=== PATIENT | male | born 1945 | race Caucasian/White ===

== ENCOUNTER 2017-01-23 16:10 | Emergency (ER) | payer MEDICARE, OTHER ==
[2017-01-23 16:27] LABS: BASOPHILS 0.4 % (0-2); EOSINOPHILS 1.7 % (0-7); HEMATOCRIT 44.6 % (42.0-54.0); HEMOGLOBIN 15.5 g/dL (13.5-17.5); IMMATURE GRANULOCYTES 0.4 % (0-5); LYMPHOCYTES 19.9 % (15-50); MCH 31.7 pg (26.0-34.0); MCHC 34.8 g/dL (31.0-37.0); MCV 91.2 fL (80.0-100.0); MEAN PLATELET VOLUME 11.6 fL (7.4-10.4); MONOCYTES 7.8 % (2-11); NEUTROPHILS 69.8 % (40-80); PLATELET COUNT 256 10x3/uL (130-400); RBC 4.89 10x6/uL (4.20-6.10); RDW 13.8 % (11.5-14.5); WBC 11.7 10x3/uL (4.8-10.8)
[2017-01-23 16:47] LABS: ALBUMIN 3.9 g/dL (3.4-5.0); ALKALINE PHOSPHATASE 86 U/L (46-116); ALT (SGPT) 38 U/L (10-68); BILIRUBIN - TOTAL 0.52 mg/dL (0.2-1.3); CALC OSMOLALITY 287 mosm/kg (275-300); CALCIUM 9.3 mg/dL (8.5-10.1); CARBON DIOXIDE 28.3 mmol/L (21.0-32.0); CHLORIDE - SERUM 102 mmol/L (98-107); CREATININE - SERUM 1.4 mg/dL (0.6-1.3); GLUCOSE 158 mg/dL (74-106); POTASSIUM - SERUM 3.1 mmol/L (3.5-5.1); PROTEIN - SERUM 8.4 g/dL (6.4-8.2); SODIUM 142 mmol/L (136-145); UREA NITROGEN 19 mg/dL (7-18); eGFR NON AFRICAN AMERICAN 53 mL/min (90-120)
[2017-01-23 16:53] LABS: TROPONIN-I < 0.017 ng/mL (0.000-0.060)
[2017-01-23 19:09] LABS: ERYTHROCYTE SEDIMENTATION RATE 30 mm/hr (0-20)
[2017-01-24] MEDS ORDERED: GLIMEPIRIDE2 MG PO (17:09)
[2017-01-24] MEDS ORDERED: GLUCOPHAGE1000 MG PO (17:09)
[2017-01-24] MEDS ORDERED: BUMEX2 MG PO (17:10)
[2017-01-24] MEDS ORDERED: ALTACE10 MG PO (17:10)
[2017-01-24] MEDS ORDERED: NORVASC5 MG PO (17:11)
[2017-01-24] MEDS ORDERED: ASPIRIN325 MG PO (17:12)
[2017-01-25 12:21] VITALS: BMI 38.4
== END 2017-01-23 18:17 | disposition home or self-care (01) ==
LOC: D.ER 16:10
PROVIDERS: Emergency Medicine
DX: E11.319 Type 2 diabetes mellitus with unspecified diabetic retinopathy without macular edema (principal)

== ENCOUNTER 2017-01-24 13:19 | Inpatient (IN) | payer MEDICARE, OTHER ==
[~2017-01-24] VITALS: Ht 170.2 cm; Wt 111.1 kg
--- NOTE | ~2017-01-24 | EC ---
PATIENT:AGUS SCHMITT DATE OF SERVICE: 01/24/17 SEX: M MEDICAL RECORD: [id number] DATE OF : 41 LOCATION:[facility] AGE OF PATIENT: 71 ADMISSION DATE: 01/24/17 REFERRING PHYSICIAN: INTERPRETING PHYSICIAN: FALLON COURTNEY M.D. ECHOCARDIOGRAM REPORT ECHO CHARGES 4 ECHO COMPLETE CLINICAL DIAGNOSIS: CVA/ASSESS FOR CLOTS HX OF TIA/HTN ECHOCARDIOGRAPHIC MEASUREMENTS (adult normal given) AC root (d.<3.7cm) 3.9 LV Septum d (<1.2 cm> 1.5 Valve Excursion 20 LV Septum (systole) 1.9 Left Atria (s.<4.0cm> 3.9 LVPW d(<1.2cm) 1.6 RV (d.<2.3cm) 3.9 LVPW (sytole) 2.0 LV diastole(<5.6CM) 4.9 MV E-F(>70mm/sec) LV systole 3.3 LVOT Diameter 1.7 MV exc.(>10mm) 1.9 Est.ejection fraction (50-75%) Pericardial Effusion N DOPPLER: LVIT A 99.0 E 68.0 LA RVSP 26 LVOT 120 AOP1/2T 670 Asc. Ao 150 RVOT 130 RA PA 183 AV Gradient Peak 9.00 AV Mean 4.41 AV Area 1.7 MV Gradient Peak 7.26 MV Mean 2.71 MV Area COMMENTS: Spanish Tutor: Izabel COTTO Male Impersonator:Izabel Courtney TAPE# PACS DATE OF SERVICE: 01/25/2017 REFERRING PHYSICIAN: Dr. David Fernandez. INDICATION: CVA. DESCRIPTION: Left ventricle demonstrates left ventricular hypertrophy. No wall motion abnormalities are seen. Estimated ejection fraction 55%. I do not see any evidence of mass or thrombus in the left ventricle apex. Mitral valve is structurally normal. There is no regurgitation or prolapse seen. Left atrium ECHOCARDIOGRAM REPORT [id number] AGUS SCHMITT is normal in size. The aortic valve is not well visualized. In some views it appears to be bicuspid. There is mild insufficiency seen, but no evidence of stenosis. Right ventricle is mildly dilated. Tricuspid valve appears normal. There is mild regurgitation noted. Right atrium is normal in size. There is no pericardial effusion seen. IMPRESSION: 1. Left ventricular hypertrophy with preserved ejection fraction of 55%. There is no evidence of any mass or thrombus in the left ventricle apex. 2. Mild tricuspid regurgitation. 3. Mild aortic insufficiency. The aortic valve may be bicuspid, but there is no evidence of stenosis. 4. No evidence of any mass or lesion on the semilunar valves. 5. No evidence of atrial septal defect, ventricular septal defect or patent foramen ovale. TRANSINT:[id number] Voice Confirmation ID: [id number] DOCUMENT ID: [id number] FALLON COURTNEY M.D. CC: [id number] DICTATION DATE: 01/26/17 0853 FEDERAL APPELLATE CLERK: 01/26/17 0908 ADM IN [facility] [address] [id number]
--- NOTE | 2017-01-24 15:23 | NUR ---
PT RECIEVED TO ROOM 2206 VIA WHEELCHAIR AWAKE AND ALERT ORINETED X 3 HAS COMPLAINT OF VISION DISTURBANCE. PIV SITED 20 GA TO RIGHT INNER FORARM X 1 STICK TOLERATED WELL.
[2017-01-24 15:28] LABS: BASOPHILS 0.3 % (0-2); EOSINOPHILS 0.6 % (0-7); HEMATOCRIT 43.1 % (42.0-54.0); HEMOGLOBIN 14.8 g/dL (13.5-17.5); IMMATURE GRANULOCYTES 0.3 % (0-5); LYMPHOCYTES 22.2 % (15-50); MCH 31.2 pg (26.0-34.0); MCHC 34.3 g/dL (31.0-37.0); MCV 90.9 fL (80.0-100.0); MEAN PLATELET VOLUME 11.3 fL (7.4-10.4); MONOCYTES 8.8 % (2-11); NEUTROPHILS 67.8 % (40-80); PLATELET COUNT 249 10x3/uL (130-400); RBC 4.74 10x6/uL (4.20-6.10); RDW 13.8 % (11.5-14.5); WBC 11.5 10x3/uL (4.8-10.8)
[2017-01-24 15:52] LABS: ALBUMIN 3.8 g/dL (3.4-5.0); ANION GAP 13.9 mmol/L (8-16); BILIRUBIN - TOTAL 0.81 mg/dL (0.2-1.3); CALCIUM 9.2 mg/dL (8.5-10.1); CREATININE - SERUM 1.2 mg/dL (0.6-1.3); PROTEIN - SERUM 8.1 g/dL (6.4-8.2); T4 THYROXIN - FREE 1.12 ng/dL (0.76-1.46); THYROID STIMULATING HORMONE 1.63 uIU/mL (0.36-3.74)
[2017-01-24 15:54] LABS: POTASSIUM - SERUM 2.9 mmol/L (3.5-5.1)
[2017-01-24 16:45] VITALS: BP 183/77
[2017-01-24] MEDS ORDERED: GLUCOPHAGE1000 MG PO (17:09)
[2017-01-24] MEDS ORDERED: GLIMEPIRIDE2 MG PO (17:09)
[2017-01-24] MEDS ORDERED: ALTACE10 MG PO (17:10)
[2017-01-24] MEDS ORDERED: BUMEX2 MG PO (17:10)
[2017-01-24] MEDS ORDERED: NORVASC5 MG PO (17:11)
[2017-01-24] MEDS ORDERED: ASPIRIN325 MG PO (17:12)
[2017-01-24 18:01] VITALS: BP 183/77; BMI 38.4
--- NOTE | 2017-01-24 18:11 | NUR ---
PT AOX4 RESP EVEN AND NONLABORED PT DENIES PAIN OR NEEDS AT THIS TIME IV TO RIGHT FOREARM PATENT AND INTACT PT HERE FOR POSSIBLE CVA FOR THIS VISIT. SRX2 BED IN LOWEST SETTING CALL LIGHT WITHIN REACH WILL CONTINUE TO MONITOR
--- NOTE | 2017-01-24 18:59 | NUR ---
PT STATES THAT HE HAS ALREADY TAKEN HIS ALTACE TODAY AND ONLY TAKES IT ONCE PER DAY SO DOESNT WANT TO REPEAT THE DOSE. ALSO DIDNT WANT TO TAKE METFORMIN IT "MESSES MY STOMACH UP IF I TAKE 2 PILLS OF THAT AND I DONT HAVE AN APPITITE AND DONT WANT IT"
[2017-01-24 20:00] VITALS: BP 159/86
[2017-01-25] VITALS: BP 162/88
--- NOTE | 2017-01-25 03:14 | NUR ---
ASSESSED AT THE BEGINNING OF THE SHIFT. PT IS ALERT BUT AT TIMES SEEMS A LITTLE CONFUSED. HIS VISION IS SO DISTORTED THAT HE IS NOT ABLE TO FIND THE BATHROOM TOLIET EVEN WITH ASSIST HE IS CONFUSED. WE HAVE GIVEN HIM A URINAL BUT HE IS NOT USING IT. THERE IS A BED ALARM ON HIS BED AND WE ARE KEEPING THE DOOR OPEN SO WE CAN WATCH. HE HAS TELEMETRY IN PLACE AND A SALINE LOCK. AT BEDTIME WE GAVE HIM THE AMBIEN THAT HE REQUESTED AND WAS ORDERED. HE HAS SLEPT OFF AND ON WELL WITH NO DISTRESS NOTED. THE BED IS LOW, RAILS UP X'S 2 WITH THE CALL LIGHT AT HAND.
[2017-01-25 04:00] VITALS: BP 155/80
[2017-01-25 05:45] LABS: ANION GAP 15.2 mmol/L (8-16); CARBON DIOXIDE 25.3 mmol/L (21.0-32.0); CHOL - HDL RATIO 5.4 ratio (2.3-4.9); CREATININE - SERUM 1.2 mg/dL (0.6-1.3); LDL-HDL RATIO 2.9 ratio (1.5-3.5)
[2017-01-25 06:00] LABS: POTASSIUM - SERUM 3.5 mmol/L (3.5-5.1)
--- NOTE | 2017-01-25 07:00 | NUR ---
PT REC'D FROM LAVINIA HEALY. RESTING IN BED WITH AT BEDSIDE. KARRI HEALY, AT BEDSIDE WELL. BED LOW, CALL LIGHT IN REACH, DENIES NEEDS. CPOC.
[2017-01-25 07:49] VITALS: BP 184/81
[2017-01-25 08:58] LABS: BASOPHILS 0.2 % (0-2); EOSINOPHILS 1.2 % (0-7); HEMATOCRIT 44.7 % (42.0-54.0); IMMATURE GRANULOCYTES 0.3 % (0-5); LYMPHOCYTES 27.1 % (15-50); MCHC 33.6 g/dL (31.0-37.0); MCV 92.4 fL (80.0-100.0); MEAN PLATELET VOLUME 11.9 fL (7.4-10.4); MONOCYTES 8.6 % (2-11); NEUTROPHILS 62.6 % (40-80); PLATELET COUNT 280 10x3/uL (130-400); RBC 4.84 10x6/uL (4.20-6.10); WBC 10.5 10x3/uL (4.8-10.8)
--- NOTE | 2017-01-25 09:00 | NUR ---
ASSESSED PT VISION/ PT ABLE TO SEE CLOCK AND RELAY TIME ON WALL ACROSS FROM BED BUT HAS DIFFICULTY PIN POINTING OBJECTS UP CLOSE. PT ASKED IF HE COULD WALK THIS MORNING, ADVISED PT TO WALK WITH ASSISTANCE AND SPOUSE WAS WITH PT THIS MORNING/ PT GAIT UNSTEADY - [id number]
[2017-01-25 09:10] LABS: ALBUMIN 3.8 g/dL (3.4-5.0); ANION GAP 16.7 mmol/L (8-16); BILIRUBIN - TOTAL 0.88 mg/dL (0.2-1.3); CALCIUM 9.1 mg/dL (8.5-10.1); CARBON DIOXIDE 25.1 mmol/L (21.0-32.0); CREATININE - SERUM 1.1 mg/dL (0.6-1.3); POTASSIUM - SERUM 3.8 mmol/L (3.5-5.1); PROTEIN - SERUM 7.6 g/dL (6.4-8.2)
--- NOTE | 2017-01-25 10:27 | HP ---
PATIENT: AGUS SCHMITT MEDICAL RECORD: [id number] ACCOUNT: [id number] LOCATION:D[facility] : 41 ADMISSION DATE: 01/24/17 HISTORY AND PHYSICAL EXAMINATION DATE OF ADMISSION: 01/24/2017 CHIEF COMPLAINT: Vision changes and difficulty walking. HISTORY OF PRESENT ILLNESS: This is a 71-year-old white male who started having problems with his vision on the day before admission. He presented to the Emergency Department here, he had a CT scan of his brain and that was negative, he was told he needed to go see his eye doctor the next day. On the day of admission and he went to Dr. Quezada, who performed an eye exam and told the patient that he may have had a posterior stroke and needed to have an MRI. Dr. Quezada called our office and we arranged this MRI to be done and it was consistent with an acute/subacute infarct to the right temporal and occipital lobes as well as right thalamus. There was an old lacunar infarct in the trupti. He was directly admitted for further evaluation and treatment of stroke. PAST MEDICAL AND SURGICAL HISTORY: The patient has a history of high cholesterol, diabetes and hypertension. He had a TIA in August 2015 and was seen at [facility]. At that time, he had an echo that was essentially unremarkable as well as carotid Doppler ultrasound that was essentially unremarkable. He was placed on aspirin a day. It is unclear as to whether or not to continued that all the time. PAST SURGICAL HISTORY: Unremarkable. He has had no surgeries. HOME MEDICATIONS: Ramipril 10 mg twice a day, amlodipine 5 mg once a day, Lasix 20 mg once a day as needed for edema, glimepiride 2 mg once a day, metformin 1000 mg twice a day and pravastatin 80 mg once a day. DRUG ALLERGIES: None known. HABITS: Former smoker. No alcohol use. SOCIAL HISTORY: He is . He is retired. FAMILY HISTORY: Father at 72 of heart failure. Mother at 77 of diabetes and kidney disease. Brother at 73 of a stroke. REVIEW OF SYSTEMS: GENERAL: No major weight changes. HEENT: No particular sinus or allergy problems. RESPIRATORY: Has a long time history of smoking, but no known diagnosis of COPD or emphysema. CARDIAC: No history of chest pain, shortness of breath, or coronary artery disease. GASTROINTESTINAL: No significant reflux, diarrhea, or constipation. GENITOURINARY: No significant problems there. MUSCULOSKELETAL: Few joint aches and pains. NEUROLOGIC: No seizures or headaches. PSYCHIATRIC: Denies depression or melancholia. HISTORY AND PHYSICAL [id number] AGUS SCHMITT PHYSICAL EXAMINATION: VITAL SIGNS: Temperature 97.5, pulse 84, respirations 16 and blood pressure 183/77. GENERAL: He is awake and alert. He is in no acute distress, was having difficulty to see, he can see a hand wave in front of him, really difficult to tell how many fingers I have held up. HEENT: Otherwise is unremarkable. NECK: Supple. No JVD or bruit. HEART: Regular rate and rhythm without murmur. LUNGS: Clear. ABDOMEN: Soft, flat, nontender. EXTREMITIES: No edema. Senior Property Manager is 5/5 bilaterally. I did not get him up and walk. LABORATORY DATA: CBC with a white count of 11,500, hemoglobin 14.8, and hematocrit 43.1. Sodium 140, potassium is low at 2.9, chloride 102, CO2 of 27, BUN 16, creatinine 1.2, glucose 126 and calcium 9.2. Liver functions are all normal. TSH 1.6 and free T4 of 1.12. MRI of the brain showed findings consistent with acute/subacute infarct in the right temporal and occipital lobe as well as the right thalamus, there is an old lacunar infarct in the trupti. ASSESSMENT: 1. Posterior circulation cerebrovascular accident. 2. Diabetes. 3. Hypertension. 4. Former smoker. PLAN: Lovenox, check MRA of the head and neck, consult Dr. Lopez, echocardiogram, telemetry and other tests or procedures as warranted. TRANSINT:[id number] Voice Confirmation ID: [id number] DOCUMENT ID: [id number] CHAR REID MD at 1027 CC: [id number] DICTATION DATE: 01/25/17113 FRESH WORK INSPECTOR: 01/25/17 0142 ADM IN [address] [id number] [place] [address]
[2017-01-25 12:18] VITALS: BP 156/82
[2017-01-25 12:21] VITALS: Ht 170.2 cm; Wt 111.1 kg
--- NOTE | 2017-01-25 13:50 | NUR ---
PT IS LYING IN BED ON LT SIDE. EYES CLOSED, EVEN RISE AND FALL OF CHEST. BED IN LOW POSITION WITH CALL LIGHT IN REACH
[2017-01-25 14:43] VITALS: BP 167/73
--- NOTE | 2017-01-25 16:25 | NUR ---
PT INQUIRED ON ECHO, YEN THOMAS IN MONITORS AND REQUESTED TECH TO BE CALLED FOR ECHO ORDERED 01/24/17 - [id number]
--- NOTE | 2017-01-25 16:30 | NUR ---
PT AOX4 RESP EVEN AND NONLABORED PT DENIES NEEDS AT THIS TIME IV TO RIGHT FOREARM PATENT AND INTACT SRX2 BED AT LOWEST SETTING CALL LIGHT WITHIN REACH WILL CONTINUE TO MONITOR
--- NOTE | 2017-01-25 17:25 | NUR ---
PT REQUESTED TYLENOL FOR HEADACHE, STATED THE HEADACHE EASES UP BUT GETS WORSE WHEN HE STRAINS TO SIT UP OR PULL HIMSELF UP. RE-EDUCATED PT ON THE IMPORTANCE OF USING THE CALL LIGHT FOR ASSISTANCE TO HELP ALLEVIATE STRAIN AND HEADACHES. ADMINISTERED TYLENOL, PT IS SITTING UP IN BED VISITING W/ . NO OTHER NEEDS AT THIS TIME
--- NOTE | 2017-01-25 19:00 | NUR ---
PATIENT IN BED VISITING WITH FAMILY. HOB 40 DEGREES. AAOX4. RR EVEN AND UNLABORED. 0 S/S OF DISTRESS. DENIES PAIN AT THIS TIME. IV TO RIGHT FA S/L WITH NO REDNESS OR SWELLING. TELEMETRY ON. SCD'S IN ROOM BUT OFF. SRX2. BED LOW. CALL LIGHT WITHIN REACH.
[2017-01-25 20:00] VITALS: BP 174/77
--- NOTE | 2017-01-25 22:00 | NUR ---
PATIENT HAD REQUESTED EARLIER IN SHIFT TO BRING AMBIEN AROUND 2100. TOOK AMBIEN INTO ROOM BUT PATIENT WAS ALREADY SLEEPING. RETURNED AMBIEN.
[2017-01-26] VITALS: BP 130/57
--- NOTE | 2017-01-26 01:51 | NUR ---
PATIENT STILL SLEEPING WITH NO DISTRESS NOTED. AT BEDSIDE.
[2017-01-26 04:00] VITALS: BP 195/92
--- NOTE | 2017-01-26 04:10 | NUR ---
PATIENT'S BP 195/92. NOTIFIED DR. REID. INCREASED NORVASC TO 10MG AND ADMINISTERED 0.1MG CLONODINE PO PER TELEPHONE ORDER.
[2017-01-26 05:28] LABS: CARBON DIOXIDE 26.2 mmol/L (21.0-32.0); CREATININE - SERUM 1.1 mg/dL (0.6-1.3)
[2017-01-26 05:37] LABS: POTASSIUM - SERUM 3.2 mmol/L (3.5-5.1)
--- NOTE | 2017-01-26 07:20 | NUR ---
PT REC'D FROM LAVINIA COFFMAN. RESTING IN BED WITH AT BEDSIDE. AAOX4. BED LOW, CALL LIGHT IN REACH, DENIES NEEDS. CPOC.
--- NOTE | 2017-01-26 07:26 | NUR ---
RECEIVED REPORT FROM LAVINIA COFFMAN, WENT TO SEE PT/ PT IS SITTING UP IN BED VISITING W/ SPOUSE. REQUESTED CUP OF COFFEE. PT COMPLAINS OF SLIGHT HEADACHE/ PT SLOUCHED IN BED NECK DOWN PULLED PT UP AND STATED THAT HELPED. PT DECLINED TYLENOL AT THIS TIME. NO OTHER NEEDS
[2017-01-26 08:23] VITALS: BP 153/79
--- NOTE | 2017-01-26 11:15 | NUR ---
RESTING QUIETLY WITH EYES CLOSED. RESP EVEN,NONLABORED.
--- NOTE | 2017-01-26 11:32 | NUR ---
PT LYING ON RT SIDE IN BED. VISITING WITH SPOUSE. INQUIRED ON POSSIBLE D/C AND IF DR REID HAS MADE ROUNDS YET. PT IS PENDING RESULTS OF ECHO. NO OTHER NEEDS AT THIS TIME
[2017-01-26] MEDS ORDERED: PLAVIX75 MG PO (12:35)
[2017-01-26] MEDS ORDERED: K-TAB10 MEQ PO (12:37)
[2017-01-26 12:55] VITALS: BP 153/80
--- NOTE | 2017-01-26 14:43 | NUR ---
WENT OVER D/C ORDERS W/ PT AND SP. PT TO F/U W/ DR REID IN 1-2 WEEKS , REVIEWED MEDICATION ORDERS WITH PT AND FAMILY. NO QUESTIONS OR CONCERNS AT THIS TIME. D/C PT IV TO RT FOREARM/ ESCORTED PT DOWNSTAIRS TO VEHICLE VIA WHEELCHAIR
== END 2017-01-26 14:47 | disposition home or self-care (01) | DRG 66 ==
LOC: D.MRI 13:19 → D.MS 14:37 → D.MRI 16:00 → D.MS 01-26 14:47
PROVIDERS: ADMIT Family Medicine
DX: I63.531 Cerebral infarction due to unspecified occlusion or stenosis of right posterior cerebral artery (principal); I10 Essential (primary) hypertension; E11.42 Type 2 diabetes mellitus with diabetic polyneuropathy; H53.9 Unspecified visual disturbance; E11.319 Type 2 diabetes mellitus with unspecified diabetic retinopathy without macular edema; R40.2362 Coma scale, best motor response, obeys commands, at arrival to emergency department; R40.2142 Coma scale, eyes open, spontaneous, at arrival to emergency department; R40.2252 Coma scale, best verbal response, oriented, at arrival to emergency department; Z86.73 Personal history of transient ischemic attack (TIA), and cerebral infarction without residual deficits; Z87.891 Personal history of nicotine dependence

== ENCOUNTER 2017-02-08 12:54 | Emergency (ER) | payer MEDICARE, OTHER ==
[2017-01-25 12:21] VITALS: BMI 38.4
[~2017-02-08 12:54] MED LIST: ALTACE10 MG PO; ASPIRIN325 MG PO; BUMEX2 MG PO; GLIMEPIRIDE2 MG PO; GLUCOPHAGE1000 MG PO; K-TAB10 MEQ PO; NORVASC5 MG PO; PLAVIX75 MG PO
[2017-02-08 13:56] LABS: BASOPHILS 0.4 % (0-2); EOSINOPHILS 1.6 % (0-7); HEMOGLOBIN 15.2 g/dL (13.5-17.5); IMMATURE GRANULOCYTES 0.3 % (0-5); LYMPHOCYTES 17.3 % (15-50); MCH 31.5 pg (26.0-34.0); MCHC 34.5 g/dL (31.0-37.0); MCV 91.3 fL (80.0-100.0); MONOCYTES 7.7 % (2-11); NEUTROPHILS 72.7 % (40-80); PLATELET COUNT 299 10x3/uL (130-400); RBC 4.82 10x6/uL (4.20-6.10); RDW 13.4 % (11.5-14.5)
[2017-02-08 14:10] LABS: ALBUMIN 3.8 g/dL (3.4-5.0); ANION GAP 15.1 mmol/L (8-16); BILIRUBIN - TOTAL 0.64 mg/dL (0.2-1.3); CALCIUM 9.3 mg/dL (8.5-10.1); CARBON DIOXIDE 25.7 mmol/L (21.0-32.0); CREATININE - SERUM 1.2 mg/dL (0.6-1.3); POTASSIUM - SERUM 3.8 mmol/L (3.5-5.1); PROTEIN - SERUM 8.4 g/dL (6.4-8.2)
== END 2017-02-08 14:38 | disposition home or self-care (01) ==
LOC: D.ER 12:54
PROVIDERS: Emergency Medicine
DX: R42 Dizziness and giddiness (principal); R94.31 Abnormal electrocardiogram [ECG] [EKG]; I10 Essential (primary) hypertension

== ENCOUNTER 2018-01-01 13:30 | Emergency (ER) | payer MEDICARE, OTHER ==
[2017-01-25 12:21] VITALS: BMI 38.4
[2018-01-01 14:06] LABS: BASOPHILS 0.4 % (0-2); HEMATOCRIT 44.7 % (42.0-54.0); HEMOGLOBIN 15.6 g/dL (13.5-17.5); IMMATURE GRANULOCYTES 0.3 % (0-5); LYMPHOCYTES 23.6 % (15-50); MCHC 34.9 g/dL (31.0-37.0); MCV 91.8 fL (80.0-100.0); MEAN PLATELET VOLUME 10.7 fL (7.4-10.4); MONOCYTES 7.7 % (2-11); PLATELET COUNT 283 10x3/uL (130-400); RBC 4.87 10x6/uL (4.20-6.10); RDW 13.5 % (11.5-14.5); WBC 11.3 10x3/uL (4.8-10.8)
[2018-01-01 14:30] LABS: ALBUMIN 3.8 g/dL (3.4-5.0); ANION GAP 11.4 mmol/L (8-16); BILIRUBIN - TOTAL 0.57 mg/dL (0.2-1.3); CALCIUM 9.5 mg/dL (8.5-10.1); CARBON DIOXIDE 28.1 mmol/L (21.0-32.0); CREATININE - SERUM 1.6 mg/dL (0.6-1.3); POTASSIUM - SERUM 4.5 mmol/L (3.5-5.1); PROTEIN - SERUM 8.4 g/dL (6.4-8.2)
[2018-01-01 15:28] LABS: CREATINE KINASE 87 UL (21-232)
[2018-01-01 15:32] LABS: APPEARANCE CLEAR (CLEAR); BILIRUBIN NEGATIVE (NEGATIVE); COLOR YELLOW (YELLOW); GLUCOSE NEGATIVE (NEGATIVE); KETONE NEGATIVE (NEGATIVE); NITRITE NEGATIVE (NEGATIVE); PROTEIN NEGATIVE (NEGATIVE); SPECIFIC GRAVITY 1.015 (1.005-1.020); UROBILINOGEN NORMAL (NORMAL)
[2018-01-01 15:36] LABS: TROPONIN-I < 0.017 ng/mL (0.000-0.060)
== END 2018-01-01 17:07 | disposition home or self-care (01) ==
LOC: D.ER 13:30
PROVIDERS: Emergency Medicine; Nurse Practitioner Family
DX: R53.1 Weakness (principal); T50.905A Adverse effect of unspecified drugs, medicaments and biological substances, initial encounter; Y92.019 Unspecified place in single-family (private) house as the place of occurrence of the external cause; I10 Essential (primary) hypertension; I44.0 Atrioventricular block, first degree

== ENCOUNTER → 2019-08-20 09:05 | Outpatient (CLI) | payer MEDICARE, OTHER ==
[2017-01-25 12:21] VITALS: BMI 38.4
== END | disposition home or self-care (01) ==
LOC: D.CT 09:05
PROVIDERS: ATTEND Family Medicine
DX: M25.531 Pain in right wrist (principal)